=== PATIENT | male | born 1965 | race Caucasian/White ===

== ENCOUNTER 2017-02-27 13:58 | Inpatient (IN) | payer MEDICAID, OTHER ==
[2017-02-27 14:46] LABS: BASO # 0.1 K/uL (0.0-0.2); BASO % 0.8 % (0.0-2.0); EOS # 0.1 K/uL (0.0-0.7); EOS % 1.8 % (0.0-4.0); HEMATOCRIT 40.6 % (35.0-51.0); LYMPH # 1.8 K/uL (1.0-4.3); LYMPH % 22.5 % (20.0-40.0); MEAN CELL VOLUME 82.8 fL (80.0-94.0); MEAN CORPUSCULAR HEMOGLOBIN 27.9 pg (27.0-31.0); MEAN CORPUSCULAR HGB CONC 33.8 g/dL (33.0-37.0); MEAN PLATELET VOLUME 6.4 fL (7.2-11.7); MONO # 0.4 K/uL (0.0-0.8); NRBC % 0.1 % (0.0-2.0); RED CELL DISTRIBUTION WIDTH 14.9 % (11.5-14.5); WHITE BLOOD COUNT 8.2 K/uL (4.8-10.8)
[2017-02-27 15:25] LABS: ALB/GLOB RATIO 1.1 (1.0-2.1); ALKALINE PHOSPHATASE 71 U/L (38-126); ALT/SGPT 44 U/L (21-72); AST/SGOT 24 U/L (17-59); BILIRUBIN,TOTAL 0.5 mg/dL (0.2-1.3); BLOOD UREA NITROGEN 17 mg/dL (9-20); CALCIUM 8.4 mg/dl (8.6-10.4); CARBON DIOXIDE 24 mmol/L (22-30); CHLORIDE 103 mmol/L (98-107); GFR AFRICAN-AMERICAN > 60; GLUCOSE,RANDOM 94 mg/dL (75-110); POTASSIUM 3.3 mmol/L (3.6-5.2); SODIUM 139 mmol/L (132-148); TOTAL PROTEIN 7.7 g/dL (6.3-8.3)
[2017-02-27] MEDS ORDERED: Potassium Chloride 20 mEq ER Tab PO STA (15:27)
[2017-02-27] MEDS ORDERED: Potassium Chloride 20 mEq ER Tab PO ONE (15:35)
[2017-02-27 15:44] LABS: ALCOHOL SERUM < 10 mg/dl (0-10)
[2017-02-27 15:48] LABS: URINE BILIRUBIN NEGATIVE (NEGATIVE); URINE BLOOD NEGATIVE (NEGATIVE); URINE COLOR Yellow (YELLOW); URINE GLUCOSE (UA) NORMAL (Normal); URINE HYALINE CAST 0-2 /lpf (0-2); URINE KETONE NEGATIVE (NEGATIVE); URINE LEUKOCYTE ESTERASE NEG Leu/uL (Negative); URINE PROTEIN NEGATIVE (NEGATIVE); URINE UROBILINOGEN NORMAL mg/dL (0.2-1.0); WBC URINE 1 /hpf (0-5)
--- NOTE | 2017-02-27 16:30 | C.PDOC ---
History Of Present Illness 51 year old male presents to the ED with complaints of hearing voices. Patient reports he was last seen in ED for similar complaints in 2014. He denies physical complaints, suicidal, or homicidal ideations. Time Seen by Provider: 02/27/17 14:27 Chief Complaint (Nursing): Psychiatric Evaluation History Per: Patient History/Exam Limitations: no limitations Onset/Duration Of Symptoms: Hrs Current Symptoms Are (Timing): Still Present Suicide/Self Injury Attempted (Context): None Pain Scale Rating Of: 0 Involuntary Hold By: None Recent travel outside of the [place]: No Additional History Per: Prior Records Past Medical History Reviewed: Historical Data, Nursing Documentation, Vital Signs Vital Signs: Last Vital Signs Temp 98.3 F 02/27/17 20:11 Pulse 66 02/27/17 20:11 Resp 20 02/27/17 20:11 BP 110/70 02/27/17 20:11 Pulse Ox 97 02/27/17 20:11 - Medical History PMH: Anxiety, Diabetes, HTN, Schizophrenia - [facility] Procedures PSYCHIAT DRUG THERAP NEC (12/08/14) Family History: States: Unknown Family Hx - Social History Hx Alcohol Use: No Hx Substance Use: No Review Of Systems Constitutional: Negative for: Fever, Chills Cardiovascular: Negative for: Chest Pain, Palpitations Respiratory: Negative for: Cough, Shortness of Breath Gastrointestinal: Negative for: Nausea, Vomiting, Abdominal Pain, Diarrhea Psych: Positive for: Other (auditory hallucenations ). Negative for: Suicidal ideation Physical Exam - Physical Exam Appears: Non-toxic, No Acute Distress Skin: Warm, Dry, No Rash Head: Atraumatic, Normacephalic, No Tenderness Eye(s): bilateral: Normal Inspection, PERRL, EOMI Oral Mucosa: Moist Neck: Supple Chest: Symmetrical, No Deformity, No Tenderness Cardiovascular: Rhythm Regular, No Murmur Respiratory: No Rales, No Rhonchi, No Wheezing, Other (clear to auscultation bilaterally ) Gastrointestinal/Abdominal: Soft, No Tenderness, No Distention, No Guarding, No Rebound Extremity: Normal ROM, No Tenderness Neurological/Psych: Oriented x3, Other (calm affect ) ED Course And Treatment - Laboratory Results Result Diagrams: 02/27/17 14:41 02/27/17 14:41 ECG: Interpreted By Me, Viewed By Me ECG Rhythm: Sinus Rhythm Interpretation Of ECG: Normal Sinus Rhythm with rate 67bpm. Rate From EC O2 Sat by Pulse Oximetry: 96 (RA) Pulse Ox Interpretation: Normal Progress Note: Labs and blood work was ordered. Patient was given K-Dur 20 mEq ER Tab. Medical Decision Making Medical Decision Making: Patient is now medically clear. Disposition - Disposition Disposition: HOSPITALIZED Disposition Time: 05:00 Condition: STABLE - Clinical Impression Clinical Impression: Depression - Scribe Statement The provider has reviewed the documentation as recorded by the Scribe Idania Garzon All medical record entries made by the Scribe were at my direction and personally dictated by me. I have reviewed the chart and agree that the record accurately reflects my personal performance of the history, physical exam, medical decision making, and the department course for this patient. I have also personally directed, reviewed, and agree with the discharge instructions and disposition. Decision To Admit - Pt Status Changed To: Hospital Disposition Of: Inpatient - Admit Certification Admit to Inpatient:: After my assessment, the patient will require hospitalization for at least two midnights. This is because of the severity of symptoms shown, intensity of services needed, and/or the medical risk in this patient being treated as an outpatient. - InPatient: Physician Admission Certification: I certify that this patient requires 2 or more midnights of care for the following reason:: needs pysch - . Bed Request Type: Telemetry Admitting Physician: Mike Najera Patient Diagnosis: Schizophrenia, Depression
--- NOTE | 2017-02-27 20:28 | PCM.BM ---
<Seble Banuelos - Last Filed: 02/27/17 20:25> Treatment Plan Problems - Problems identified on initial assessmt Auditory Hallucinations Date Initiated: 02/27/17 Time Initiated: 20:15 Assessment reference: NA Status: Active Anxiety Date Initiated: 02/27/17 Time Initiated: 20:15 Assessment reference: NA Status: Active Treatment assets and liabiliti Patient Assests: adapts well, cooperative, ADL independent, negotiates basic needs, cognitively intact Patient Liabilities: live alone, financial problems, medical problems (HBP, DM, Umbilical Hernia) - Milieu Protocol Maintain good personal hygiene: daily Encourage regular showers, daily Remind patient to perform daily oral care, other Assist patient to perform ADL's (Self) Conduct patient checks and document Observation sheet: Q15 minutes (Safety) Maintain personal safety: every shift Educate patient to report safety concerns to staff, every shift Monitor environment for contraband/sharps Medication safety: Monitor for expected outcome, potential side effects: every shift, Assess barriers to learning: every shift, Assess readiness for medication education: every shift <Meenu Simmons - Last Filed: 02/28/17 10:46> Family Contact Family involvement: Family/SO is involved Family contact: Patient agrees to contact - Goals for Treatment Patient goals for treatment: "I need the right medication." Discharge/Continuing Care - Education Needs Education Needs: Patient Medication, Patient Coping Skills - Discharge Discharge Criteria: Tolerates medication w/o severe side effects, Reduction of target symptoms Discharge to:: Home, With Family - Treatment Team Participation Discussed with Family/SO: No Was Patient/Family/SO present at Treatment Team Meeting: Yes <Ryan Dhillon - Last Filed: 02/28/17 10:49> - Diagnosis (1) Schizophrenia, paranoid type Status: Acute Interventions: 02/28/17 10:49 * Assess/adjust medications daily and /or as needed * See patient on an individual basis 7x/week to assess status of hallucinations * Discuss risks, benefits, side effects and alternatives of medications *
[2017-02-28 06:54] VITALS: RESP 18
--- NOTE | 2017-02-28 10:47 | PCM.PSYCH ---
Initial Psychiatric Evaluation - Initial Psychiatric Evaluation Type of Admission: Voluntary Legal Status: Capacity Chief Complaint (in patient's own words): "I feel anxious" History of Present Illness and Precipitating Events: This patient was seen, chart reviewed, and case discussed with staff. This is a 51 year old male, who lives alone in [place], [place]. He was brought to the hospital for suicidal ideations and heroin use. Patient reports that his mother soon after his last inpatient stay 2 years ago. He reports auditory hallucinations, "an angry male voice," that started after his mother's . He denies current visual hallucinations or feelings of paranoia. He reports anxiety about his current state and states "I am afraid I won't leave the hospital this time." He reports feelings of depression including decreased levels of: sleep, interest, energy, concentration, appetite , psychomotor ability. He reports previous suicidal ideations, described as "brief, minor thoughts that scare me which causes them to go away." He denies any current suicidal ideations or homicidal ideations. Patient reports previous inpatient psychiatric hospitalization at [facility] about two years ago for schizophrenia. He reports outpatient psychiatric care with Dr. Key, last seen one week ago. He was previously taking Seroquel, Zoloft, and Ativan. Past medical history: HTN, DM, SVT Past family psychiatric history: unknown by patient Current Medications: Active Medications Generic Name Dose Route Start Last Admin Trade Name Freq PRN Reason Stop Dose Admin Amlodipine Besylate 5 mg 02/28/17 10:00 02/28/17 09:45 Norvasc PO 5 mg DAILY EDGARD Administration Atenolol 50 mg 02/28/17 10:00 02/28/17 09:45 Tenormin PO 50 mg DAILY EDGARD Administration Famotidine 20 mg 02/28/17 10:00 02/28/17 09:45 Pepcid PO 20 mg BID EDGARD Administration Hydroxyzine HCl 25 mg 02/27/17 20:35 Atarax PO Q6 PRN Anxiety Lorazepam 1 mg 02/28/17 10:00 02/28/17 09:45 Ativan PO 1 mg BID EDGARD Administration Metformin HCl 500 mg 02/28/17 10:00 02/28/17 09:45 Glucophage PO 500 mg DAILY EDGARD Administration Pneumococcal Polyvalent Vaccine 0.5 ml 03/02/17 10:00 Pneumovax 23 Vaccine IM 03/02/17 10:01 .ONCE ONE Rivaroxaban 20 mg 02/28/17 10:00 02/28/17 09:45 Xarelto PO 20 mg DAILY EDGARD Administration Rosuvastatin Calcium 5 mg 02/28/17 22:00 Crestor PO HS EDGARD Sertraline HCl 100 mg 02/28/17 10:00 02/28/17 09:45 Zoloft PO 100 mg DAILY EDGARD Administration Past Psychiatric History - Past Psychiatric History Previous Treatment History: Inpatient At [facility]: [facility] Pertinent Medical Hx (Current Medical&Sleep Prob, Allergies): Allergies Allergy/AdvReac Type Severity Reaction Status Date / Time Penicillins Allergy Verified 02/27/17 14:15 seafood Allergy Uncoded 02/27/17 14:15 Atenolol 50 mg PO DAILY 02/27/17 Atorvastatin [Lipitor] 10 mg PO DAILY 02/27/17 Famotidine 20 mg PO BID 02/27/17 LORazepam [Ativan] 1 mg PO BID 02/27/17 Metformin HCl [Metformin HCl ER] 500 mg PO DAILY 02/27/17 Quetiapine Fumarate [Quetiapine Fumarate ER] 400 mg PO BID 02/27/17 Rivaroxaban [Xarelto] 20 mg PO DAILY 02/27/17 Sertraline HCl 200 mg PO DAILY 02/27/17 amLODIPine [Norvasc] 5 mg PO DAILY 02/27/17 Review of Systems - Review of Systems All systems: reviewed and no additional remarkable complaints except - Psychiatric Psychiatric: Anxiety, Auditory Hallucinations, Change in Appetite, Depression, Difficulty Concentrating, Irritability Mental Status Examination - Personal Presentation Personal Presentation: Looks stated age - Affect Affect: Constricted, Depressed - Motor Activity Motor Activity: Calm - Reliability in Providing Information Reliability in Providing Information: Poor, due to alteration in thoughts - Speech Speech: Disorganized - Mood Mood: Depressed, Anxious - Formal Thought Process Formal Thought Process: Hallucinations, Loosening of associations - Hallucinations/Delusions Hallucinations: Auditory - Obsessions/Compulsions Obsessions: No Compulsions: No - Cognitive Functions Orientation: Person, Place, Situation, Time Sensorium: Alert Attention/Concentration: Attentive Abstract Thinking: Wilder Estimate of Intelligence: Below average Judgement: Imparied, as evidence by: Poor judgement, Imparied, as evidence by: Lack of insight into illness - Risk Risk: Suicidal, Diminished functioning - Limitations Limitations: Living alone DSM 5 DX - DSM 5 DSM 5 Diagnosis: Schizophrenia paranoid type continuous R/O Schizoaffective disorder bipolar type - Recommended/Plan of Treatment Treatment Recommendations and Plan of Treatment: Schizophrenia paranoid type continuous R/O Schizoaffective disorder bipolar type CBT Psychoeducation Supportive therapy, group therapy, individual therapy Prolixin 5 mg by mouth twice a day Sertraline 100 mg by mouth daily Hydroxyzine 25 gm PO Q6 hr prn - Smoking Cessation Smoking Cessation Initiated: No
--- NOTE | 2017-02-28 13:33 | CARD ---
APPROVED REPORT EKG Measurement Heart [id number] <Conclusion> Normal sinus rhythm Normal ECG
[2017-03-01 09:28] VITALS: TEMP 98.6; O2SAT 98
[2017-03-01] MEDS ORDERED: Influenza Vaccine 60 mcg/0.5 mL SYR (4YR UP) IM ONE (10:00)
[2017-03-01 16:15] VITALS: BP 113/80; PULSE 75
--- NOTE | 2017-03-01 22:06 | PCM.PYCHPN ---
Psychiatric Progress Note - Psychiatric Progress Note Patient seen today, length of contact: 16 min Patient Chief Complaint: "I'm better" Problems Identified/Issues Discussed: The pt is seen, chart reviewed, case discussed with staff. Support given, CBT used briefly No new symptoms reported, improving slowly and needs more time No SEs from medications, risks discussed. After care discussed Medication Change: Yes Medical Record Reviewed: Yes Mental Status Examination - Cognitive Function Orientation: Person, Place, Situation, Time Memory: Intact Attention: Poor Concentration: Poor Association: WNL Fund of Knowledge: Poor - Mood Mood: Depressed, Anxious - Affect Affect: Constricted, Depressed - Speech Speech: Appropriate - Formal Thought Process Formal Thought Process: Hallucinations, Loosening of associations - Suicidal Ideation Suicidal Ideation: No - Homicidal Ideation Homicidal Ideation: No Goal/Treatment Plan - Goal/Treatment Plan Need for Continued Stay: Discharge may exacerbated symptoms, Severe functional impairment Progress Toward Problem(s) and Goals/Treatment Plan: Continue medications Support and psychoeducation daily Attend groups and activities daily After care planning by CYRUS
[2017-03-02] MEDS ORDERED: Pneumococcal 23-Valent Vaccine IM ONE (10:00)
--- NOTE | 2017-03-02 10:04 | PCM.PYCHDC ---
Mental Status Examination - Mental Status Examination Orientation: Person, Place, Situation, Time Memory: Intact Mood: Neutral Affect: Constricted Speech: Soft Attention: WNL Concentration: WNL Association: WNL Fund of Knowledge: WNL Formal Thought Process: No Impairment Description of patient's judgement and insight: good, fair Psychotic Thoughts and Behaviors: denies any AVH Suicidal Ideation: No Current Homicidal Ideation?: No Discharge Summary - Discharge Note Reason for Hospitalization: This patient was seen, chart reviewed, and case discussed with staff. This is a 51 year old male, who lives alone in [place], [place]. He was brought to the hospital for suicidal ideations and heroin use. Patient reports that his mother soon after his last inpatient stay 2 years ago. He reports auditory hallucinations, "an angry male voice," that started after his mother's . He denies current visual hallucinations or feelings of paranoia. He reports anxiety about his current state and states "I am afraid I won't leave the hospital this time." He reports feelings of depression including decreased levels of: sleep, interest, energy, concentration, appetite , psychomotor ability. He reports previous suicidal ideations, described as "brief, minor thoughts that scare me which causes them to go away." He denies any current suicidal ideations or homicidal ideations. Patient reports previous inpatient psychiatric hospitalization at [facility] [place] about two years ago for schizophrenia. He reports outpatient psychiatric care with Dr. Key, last seen one week ago. He was previously taking Seroquel, Zoloft, and Ativan. Laboratory Data: Abnormal Lab Results 03/02/17 08:24 POC Glucose (mg/dL) 97 Consultations:: List each consultation separately and include: 1. Reason for request. 2. Findings. 3. Follow-up Summary of Hospital Course include:: 1. Description of specific treatment plan utilized for patients during their course of treatmen. 2. Summarize the time- course for resolution of acute symptoms and/or regressed behaviors. 3. Describe issues identified and worked on during hospitalization. 4. Describe medication utilized. 5. Describe medical problems identified and treated. 6. Reassessment of suicide risk Summary of Hospital Course: During the course of his stay, patient (pt) started progressively improving and he no longer remained irritable, depressed, and suicidal. His mood was improved and he started attending groups and meetings and started socializing. Patient denied any feelings of hopelessness, helplessness, and worthlessness, denied any problem with the sleep or appetite, denied suicidal ideation or homicidal ideation. Pt denied any auditory or visual hallucinations. Some changes were made in his current medications and patient was discharged on following medications. He tolerated these medications very well and denied any side effects. CBT and WI were used. Pt is to return to private psychiatrist, Dr. Rievra, in [place] on 03/05/17. - Diagnosis (1) Schizophrenia, paranoid type Status: Acute - Final Diagnosis (DSM 5) Condition upon Discharge: STABLE DSM 5: Schizophrenia paranoid type continuous R/O Schizoaffective disorder bipolar type Disposition: HOME/ ROUTINE Follow-up Treatment Plan: Education: Pt was educated and counseled about the risks and benefits of taking and not taking medications. Pt was educated and counseled about the risks of drinking and abusing drugs. Pt was educated and counseled to go to the ER or call 911 if pt develop suicidal ideation or homicidal ideation, worsening of symptoms or severe side effects of the meds. Prescriptions/Medication Reconciliation: Benztropine [Cogentin] 1 mg PO BID #60 tab fluPHENAZine [Prolixin] 5 mg PO BID #60 tab Sertraline [Zoloft] 100 mg PO DAILY #30 tab - Smoking Cessation Smoking Cessation Medication prescribed: No - Antipsychotic Medications Pt discharged on 2 or more routine antipsychotic medications: No
== END 2017-03-02 12:00 | disposition home or self-care (01) | DRG 430 ==
LOC: C.ER 13:58 → C.5E 18:23
DX: F20.0 Paranoid schizophrenia (principal); R45.851 Suicidal ideations; I47.1 Supraventricular tachycardia; F11.90 Opioid use, unspecified, uncomplicated; E11.9 Type 2 diabetes mellitus without complications; I10 Essential (primary) hypertension; F41.9 Anxiety disorder, unspecified; F32.9 Major depressive disorder, single episode, unspecified